=== PATIENT | female | born 1965 | race Native Hawaiian/Other Pacific Islander ===

== ENCOUNTER 2018-03-05 14:54 | Outpatient (CLI) | payer BC | END 2018-03-05 20:32 | disposition home or self-care (01) | LOC: RESP 14:54 | DX: G56.03 Carpal tunnel syndrome, bilateral upper limbs (principal); G56.23 Lesion of ulnar nerve, bilateral upper limbs | CPT/HCPCS: 95885; 95911 ==

== ENCOUNTER 2021-02-17 10:43 | Outpatient (CLI) | payer OTHER | END 2021-02-17 21:47 | disposition home or self-care (01) | LOC: RESP 10:43 | PROVIDERS: ATTEND Specialist | DX: G40.909 Epilepsy, unspecified, not intractable, without status epilepticus (principal) ==